=== PATIENT | male | born 1950 | race Caucasian/White ===

== ENCOUNTER 2019-12-23 06:04 | Day surgery (SDC) | payer BC, MEDICARE ==
[2019-12-22 09:03] VITALS: BMI 34.4
[~2019-12-23 06:04] MED LIST: ALPRAZolam 0.25 MG TAB PO PRN; ALPRAZolam 0.5 MG TAB PO PRN; NITROGLYCERIN SL TABS 0.4 MG TAB SUBLINGUAL PRN; SODIUM CHLORIDE 0.9% 1,000 ML in EMPTY BAG 1 BAG IV ONE
[2019-12-23 06:39] LABS: Glucose,Whole Blood 171 mg/dL (75-99)
[2019-12-23 06:50] VITALS: RESP 16; TEMP 97.9
[2019-12-23] MEDS ORDERED: SODIUM CHLORIDE 0.9% 1,000 ML IV ONE (06:50)
[2019-12-23] MEDS ORDERED: ASPIRIN 325 MG TAB PO ONE (07:00)
[2019-12-23 07:04] LABS: Calcium 9.1 mg/dL (8.4-10.2); Potassium 4.8 mmol/L (3.5-5.1)
[2019-12-23] MEDS ORDERED: MIDAZOLAM 2 MG/2 ML VIAL IV ONE (07:39)
[2019-12-23] MEDS ORDERED: LIDOCAINE 1% INJ 10MG/ML (20 ML MDV) SQ ONE (07:41)
[2019-12-23] MEDS ORDERED: VERAPAMIL SYRINGE (5 MG/10 ML) INTRAARTER ONE (07:43)
[2019-12-23] MEDS: HEPARIN SODIUM 1,000 UN/ML (10ML VL) IV ONE ×3 (07:45→08:08)
[2019-12-23] MEDS ORDERED: IOPAMIDOL-370 100ML BTL INJ ONE ×2 (08:07→08:25)
[2019-12-23] MEDS ORDERED: NITROGLYCERIN 1000MCG/10ML SYRINGE INTRACORON ONE (08:15)
[2019-12-23] MEDS ORDERED: TICAGRELOR 90 MG TAB PO ONE (08:22)
[2019-12-23] MEDS ORDERED: SODIUM CHLORIDE 0.9% 1,000 ML IV SCH (08:45)
[2019-12-23 08:48] LABS: Glucose,Whole Blood 168 mg/dL (75-99)
[2019-12-23] MEDS: INSULIN REGULAR 100 UNIT/ML VIAL SQ SCH ×3 (09:13→16:35)
--- NOTE | 2019-12-23 10:05 | CC ---
CARDIAC CATHETERIZATION REPORT DATE OF SERVICE: 12/23/2019 PROCEDURE: 1. Left heart catheterization and coronary angiography. 2. PTCA and stenting of the distal RCA with a drug-eluting stent. PERFORMED BY: Dr. Rg Becerra. Moderate conscious sedation time was 44 minutes. Patient was administered Versed. Oxygen saturation, hemodynamics and EKG were monitored closely. CLINICAL INFORMATION: Mr. Dain Salas is a 69-year-old gentleman with a known history of hypertension, type 2 diabetes, hyperlipidemia, and known CAD. In June of 2010, he underwent stenting of the proximal/mid RCA with a drug-eluting stent. Since then, he has done well. Lately, he has had chest pain and a positive stress test with inferior wall reversible defect and therefore was advised cardiac catheterization after due discussion regarding risks, benefits, and options. PROCEDURE NOTE: Under local anesthesia and strict aseptic precautions, a 6-Italian introducer was placed in the right radial artery. Using a JL3.5 and JR4 catheters, I performed coronary angiography and the same right Leigha catheter was used to check LV pressure but LV gram was not performed. Following the procedure, I performed PTCA and stenting of the distal RCA with a drug-eluting stent with excellent result. The sheath was then taken out and a TR band applied as per protocol. Patient received a total of 8000 units of heparin and his ACT was 290. He received 180 mg of Brilinta orally. CARDIAC CATHETERIZATION FINDINGS: Left foot end-diastolic pressure was about 10-12 mmHg without any gradient across the aortic valve. CORONARY ANGIOGRAPHY FINDINGS: RIGHT CORONARY ARTERY: Large dominant vessel, which is free of significant disease in the proximal and midportion. The stented segment at the junction of proximal middle 1/3 is widely patent with good flow distally well before bifurcation, there is an eccentric area of 85% to 90% narrowing, which represents significant progression of disease and this is best seen in the cranial projection. There is a severe culprit lesion in the distal RCA of about 90%. There is some calcification in the lesion noted. It bifurcates into PDA and PLV, both of which supply a sizable amount of myocardium. LEFT MAIN CORONARY ARTERY: This is a short, patent, disease-free vessel that bifurcates into LAD and circumflex. LEFT ANTERIOR DESCENDING CORONARY ARTERY: Good caliber vessel extends along the anterior wall, gives off septal and diagonal branches. In the midportion is a 40% narrowing, it gives off a diagonal branch. No significant disease. Mild calcification noted. The LAD is of good caliber and good distribution vessel with a 40% mid lesion at the origin of the diagonal branch, but no significant disease is noted. LEFT POSTERIOR CIRCUMFLEX CORONARY ARTERY: A nondominant vessel gives off a single large obtuse marginal that runs laterally, has no significant disease and also a left atrial circumflex branch. This is a second obtuse marginal, small in caliber and distribution, no significant disease and then the distal circumflex has mild diffuse irregularities. Nondominant circumflex is of fair distribution. No significant disease. Left ventriculogram was not performed. PCI procedure details. A standard right Leigha guide catheter was used to cannulate the right coronary artery. A run-through wire was used to cross the lesion. A 2.25 caliber 8 mm NC Trek balloon was used to pre-dilate the lesion. Two inflations were given. Subsequently a 3.0 caliber 12 mm Xience stent was deployed at 13 atmospheres. Patient had mild chest discomfort, no significant EKG changes. Excellent angiographic result was achieved without complication. The sheath was then taken out and TR band applied as per protocol. Patient tolerated procedure well without complication. His ACT was 290. He received 180 mg of Brilinta. Results were discussed with the patient and family. MMODL / IJN: [id number] /
[2019-12-23 12:13] LABS: Glucose,Whole Blood 159 mg/dL (75-99)
[2019-12-23] MEDS ORDERED: ACETAMINOPHEN TAB 500 MG TAB PO STA (15:37)
[2019-12-23 16:46] VITALS: BP 167/72; PULSE 68
== END 2019-12-23 17:15 | disposition home or self-care (01) ==
LOC: CATHCVL 06:04 → 3NCARDOBS 08:23 → CATHCVL 17:15
PROVIDERS: ATTEND Internal Medicine Interventional Cardiology
DX: I25.110 Atherosclerotic heart disease of native coronary artery with unstable angina pectoris (principal); I10 Essential (primary) hypertension; E11.9 Type 2 diabetes mellitus without complications; E78.5 Hyperlipidemia, unspecified; E78.00 Pure hypercholesterolemia, unspecified; F17.210 Nicotine dependence, cigarettes, uncomplicated; Z79.82 Long term (current) use of aspirin; Z79.4 Long term (current) use of insulin; Z79.899 Other long term (current) drug therapy
CPT/HCPCS: 93458; 80048; C9600; C1887; C1725; C1769 ×2; C1874; C1894; J2250; J2001; J1644; Q9967

== ENCOUNTER 2022-01-04 10:01 | Day surgery (SDC) | payer MEDICARE ==
[2021-12-27 16:05] VITALS: BMI 32.3
[2022-01-04 11:07] VITALS: TEMP 97.9
[2022-01-04] MEDS: LACTATED RINGERS 1,000 ML IV SCH ×2 (11:20→12:53)
[2022-01-04 11:25] LABS: Glucose,Whole Blood 138 mg/dL (70-110)
[2022-01-04] MEDS ORDERED: PROPOFOL 10 MG/ML 20 ML VIAL IV ONE (12:53)
--- NOTE | 2022-01-04 13:10 | P.PCN ---
Date of Procedure: 01/04/22 Procedure(s) Performed: BRIEF HISTORY: Patient is a 71-year-old pleasant male scheduled for an elective colonoscopy as a part of screening for colorectal neoplasia. PROCEDURE PERFORMED: Colonoscopy. PREOPERATIVE DIAGNOSIS: Screening for colon cancer. IV sedation per Anesthesia. PROCEDURE: After informed consent was obtained, the patient, was brought into the endoscopy unit. IV sedation was administered by Anesthesia under continuous monitoring. Digital rectal examination was normal. Initially the Olympus CF-160 flexible video colonoscope was then inserted in the rectum, gradually advanced into the cecum without any difficulty. Careful examination was performed as the scope was gradually being withdrawn. Ileocecal valve and the appendiceal orifice were visualized and appeared normal. Prep was excellent. Mucosa of the cecum, ascending colon, transverse colon, descending colon, sigmoid colon, and rectum appeared normal. Retroflexion was performed in the rectum and no lesions were seen. The patient tolerated the procedure well. IMPRESSION: Normal-appearing colon from rectum to cecum with no evidence of colitis or colorectal . RECOMMENDATIONS: Findings of this examination were discussed with the patient as well as his family.He was advised to have a repeat screening colonoscopy in 10 years..
[2022-01-04 13:48] VITALS: BP 122/69; PULSE 50; RESP 16
== END 2022-01-04 13:47 | disposition home or self-care (01) ==
LOC: ORWHC2ENDO 10:01
PROVIDERS: ATTEND Internal Medicine Gastroenterology
DX: Z12.11 Encounter for screening for malignant neoplasm of colon (principal); I10 Essential (primary) hypertension; E78.5 Hyperlipidemia, unspecified; I25.10 Atherosclerotic heart disease of native coronary artery without angina pectoris; G47.33 Obstructive sleep apnea (adult) (pediatric); E11.9 Type 2 diabetes mellitus without complications; Z79.4 Long term (current) use of insulin; Z79.02 Long term (current) use of antithrombotics/antiplatelets; Z79.891 Long term (current) use of opiate analgesic; Z79.84 Long term (current) use of oral hypoglycemic drugs; Z79.899 Other long term (current) drug therapy
CPT/HCPCS: J2704; G0121

== ENCOUNTER → 2022-09-10 | Outpatient (CLI) | payer MEDICARE | LOC: CPPFTMAIN 15:27 | PROVIDERS: ATTEND Family Medicine | DX: F17.200 Nicotine dependence, unspecified, uncomplicated (principal) | CPT/HCPCS: 94060; 94726; 94729 ==